=== PATIENT | male | born 1970 | race Caucasian/White ===

== ENCOUNTER 2024-03-11 16:51 | Emergency (ER) | payer OTHER ==
[~2024-03-11] VITALS: Ht 167.6 cm; Wt 81.4 kg
[~2024-03-11 16:51] MED LIST: BACI28.410 TP; BUPR1FIL7 SL; CELE100 PO; CEPACLZ PO; DOCU-385 PO; HYDR25TA2 PO; LEVAHFA IH; LOSA-382 PO; MAG30ORA11 PO; OXYC-490 PO; PANT-31 PO
[2024-03-11] MEDS: CEPHALEXIN MONOHYDRATE 500 MG CAPSULE PO ONE (19:25)
[2024-03-11] MEDS: KETOROLAC TROMETHAMINE 30 MG/ML VIAL IM ONE (19:25)
[2024-03-11 19:42] VITALS: BP 124/74; PULSE 71; RESP 16; TEMP 98.3
== END 2024-03-11 19:56 ==
LOC: EMS 16:52
DX: L02.31 Cutaneous abscess of buttock (principal); E78.00 Pure hypercholesterolemia, unspecified; I10 Essential (primary) hypertension; J45.909 Unspecified asthma, uncomplicated; K21.9 Gastro-esophageal reflux disease without esophagitis; Z88.1 Allergy status to other antibiotic agents; Z88.5 Allergy status to narcotic agent
CPT/HCPCS: 99283; 10060; 96372; J1885